=== PATIENT | male | born 1980 | race Caucasian/White ===

== ENCOUNTER 2022-01-30 11:07 | Emergency (ER) | payer MEDICAID ==
[~2022-01-30] VITALS: Ht 167.6 cm; Wt 113.4 kg
[2022-01-30 11:10] VITALS: BP_SYST 161
--- NOTE | 2022-01-30 11:10 | NUR ---
TRIAGED AND AWAITING AN AVAILABLE ER BED. PT IN WAITING ROOM
--- NOTE | 2022-01-30 11:25 | NUR ---
PT STATES HE HAS HAD SORE THROAT, FEVERS, CHILLS, DIARRHEA, COUGH, SOB X1 WEEK. PT STATES HE IS JUST NOT GETTING BETTER.
--- NOTE | 2022-01-30 12:45 | NUR ---
DR BHAKTA OUT TO TRIAGE ROOM FOR EVALUATION
[2022-01-30] MEDS ORDERED: PHEN-707 PO (13:43)
[2022-01-30] MEDS ORDERED: ALBMDI INH (13:43)
[2022-01-30] MEDS ORDERED: LOPE2CAP PO (13:43)
[2022-01-30 14:09] VITALS: BP_SYST 141
--- NOTE | 2022-01-30 14:12 | NUR ---
Patient given written and verbal discharge instructions and verbalizes understanding. ER MD discussed with patient the results and treatment provided. Patient in stable condition. ID arm band removed. Rx of ALBUTEROL, IMODIUM, COLD AND FLU SEVERE CAPLET given. Patient educated on pain management and to follow up with PMD. Pain Scale 0/10. Opportunity for questions provided and answered. Medication side effect fact sheet provided.
== END 2022-01-30 14:12 | disposition home or self-care (01) ==
LOC: SED 11:07
DX: B34.9 Viral infection, unspecified (principal); R05.9 Cough, unspecified; R09.81 Nasal congestion; J02.9 Acute pharyngitis, unspecified; Z79.899 Other long term (current) drug therapy; Z20.822 Contact with and (suspected) exposure to COVID-19
CPT/HCPCS: 36415; 99283